=== PATIENT | male | born 2000 | race Two or more races ===

== ENCOUNTER 2020-09-08 23:32 | Emergency (ER) | payer MEDICAID ==
[~2020-09-08] VITALS: Ht 180.3 cm; Wt 70.3 kg
[2020-09-08] MEDS ORDERED: OLAN1TAB19 PO (23:57)
[2020-09-08] MEDS ORDERED: TRAZ50TA2 PO (23:59)
[2020-09-08] MEDS ORDERED: DIVA250T4 PO (23:59)
[2020-09-08] MEDS ORDERED: FLUO-125 PO (23:59)
[2020-09-09 00:08] LABS: Basophils # (auto) 0.1 10 ^3/uL (0-0.2); Basophils % (auto) 1.1 % (0.0-2.0); Eosinophils # (auto) 0.3 10 ^3/uL (0-0.8); Eosinophils % (auto) 4.1 % (0.0-7.0); Hematocrit 42.4 % (41.0-53.0); Hemoglobin 14.5 g/dL (13.5-17.5); Lymphocytes # (auto) 3.1 10 ^3/uL (0.4-5.4); Lymphocytes % (auto) 37.9 % (10.0-50.0); Mean Corpuscular Hemoglobin 32.3 pg (28.0-32.0); Mean Corpuscular Hgb Conc. 34.2 g/dL (32.0-36.0); Mean Corpuscular Volume 94.4 fL (80.0-100.0); Monocytes # (auto) 0.6 10 ^3/uL (0-1.3); Monocytes % (auto) 7.5 % (0.0-12.0); Neutrophils % (auto) 49.4 % (37.0-80.0); Nucleated Red Blood Cells % 0.1 %; Red Blood Cells 4.49 10^6/uL (4.5-5.90); Red Cell Distribution Width 14.9 % (11.8-14.3); White Blood Cell 8.1 10^3/uL (4.4-10.8)
[2020-09-09 00:24] LABS: Alanine Aminotransferase 30 U/L (16-61); Albumin 4.3 g/dL (3.4-5.0); Anion Gap 5 (5-15); Aspartate Aminotransferase 10 U/L (15-37); BUN/Creatinine Ratio 13.3; Blood Alcohol < 3.0 mg/dL (0-5); Blood Urea Nitrogen 16 mg/dL (7-18); Calcium 8.7 mg/dL (8.5-10.1); Carbon Dioxide 25 mmol/L (21-32); Chloride 110 mmol/L (98-107); GFR African American 98 mL/min; GFR Non-African American 81 mL/min; Glucose 99 mg/dL (74-106); Magnesium 2.4 mg/dL (1.6-2.6); Potassium 3.4 mmol/L (3.5-5.1); Sodium 140 mmol/L (136-145)
[2020-09-09 00:27] LABS: Alkaline Phosphatase 67 U/L (45-117); Bilirubin, Total 0.6 mg/dL (0.2-1.0); Total Protein 7.6 g/dL (6.4-8.2)
[2020-09-09] MEDS ORDERED: KETOROLAC TROMETH 30 MG/ML 1ML VIAL IV ONE (00:30)
[2020-09-09 02:00] VITALS: BP 121/78
[2020-09-09] MEDS ORDERED: ACETAMINOPHEN 325 MG TAB PO ONE (02:00)
[2020-09-09] MEDS ORDERED: diazePAM 5 MG TAB PO ONE ×2 (02:00)
== END 2020-09-09 06:28 | disposition home or self-care (01) ==
LOC: ER 23:32
DX: G40.509 Epileptic seizures related to external causes, not intractable, without status epilepticus (principal); T42.75XA Adverse effect of unspecified antiepileptic and sedative-hypnotic drugs, initial encounter; M54.2 Cervicalgia; Z79.899 Other long term (current) drug therapy; Y92.89 Other specified places as the place of occurrence of the external cause
CPT/HCPCS: 36415; 70450; 71045; 72125; 80053; 80164; 80320; 83735; 85025; 93005; 96374; 99285; J1885